=== PATIENT | male | born 1950 | race Caucasian/White ===

== ENCOUNTER → 2017-04-13 | Outpatient (CLI) | payer MEDICARE, BC ==
--- NOTE | 2017-04-13 10:22 | CT ---
EXAM DESCRIPTION: Chest w/Contrast CLINICAL HISTORY: PULMONARY NODULE COMPARISON: 05/15/2016 TECHNIQUE: Multiple axial images of the chest following intravenous contrast. Multiplanar reconstructions were provided. This exam was performed according to our departmental dose-optimization program, which includes automated exposure control, adjustment of the mA and/or kV according to patient size and/or use of iterative reconstruction technique. FINDINGS: Lungs: Moderate to severe emphysema is again demonstrated. New since the prior exam is a 15 mm spiculated pulmonary nodule in the anterior left lingula which abuts the visceral pericardium. A few scattered bilateral pulmonary nodules measuring 2 mm or less are not changed compared to the prior exam. Mild atelectasis or fibrosis in the lung bases. No pleural effusion. Mediastinum: The heart is at the upper limits of normal in size. Mild atherosclerotic plaque in the aortic arch. The trachea and esophagus are unremarkable. Lymph nodes: A few prominent mediastinal lymph nodes are demonstrated. The largest lymph node is in the AP window and measures 0.8 cm in short axis. No overt pathologic mediastinal or hilar lea enlargement based on CT size criteria. Chest wall and lower neck: No significant finding. Bones: The bones are demineralized. There is no destructive osseous lesion. Upper abdomen: Unremarkable. IMPRESSION: 1. New spiculated 15 mm pulmonary nodule in the lingula, most consistent with bronchogenic carcinoma. 2. Moderate to severe emphysema. 3. Additional scattered bilateral pulmonary nodules measuring 2 mm or less. 4. Mediastinal lymph nodes which are not pathologically enlarged based on size criteria. These are indeterminate though most likely reactive. Electronically signed by: Toño Brown MD 04/13/2017 10:20 AM CDT
== END | disposition home or self-care (01) ==
LOC: LAB.O 07:58
PROVIDERS: ATTEND Family Medicine
DX: R91.1 Solitary pulmonary nodule (principal)

== ENCOUNTER → 2017-06-12 | Outpatient (CLI) | payer MEDICARE, BC ==
--- NOTE | 2017-06-15 06:00 | CT ---
Procedure: CT CHEST WITHOUT IV CONTRAST Exam date: 06/12/2017 12:00 AM CDT Ordering Provider: Jaskaran Wall Clinical Indication: PULMONARY NODULE Comparison: April 13, 2017 Technique: Using a multislice scanner, sequential axial imaging was obtained in the thorax from the level of the thoracic inlet through the lung bases. The exam was obtained without the administration of IV contrast. 2D sagittal and coronal reconstructed images were obtained. This exam was performed according to our departmental dose optimization program which includes use of automated exposure control, adjustment of the mA and/or kV according to patient size and/or use of iterative reconstruction technique. FINDINGS: Stable 1.2 x 0.9 cm amorphous, slightly spiculated nodule seen within the anterior lingula abutting the paramediastinal pleural surface. This is best seen on image 30. Again, a nodule in this location is difficult to biopsy by percutaneous CT guidance and PET CT may be of value. There is again diffuse emphysematous changes of lungs with bullous emphysematous changes in the left apex and right lung base. No other new pulmonary nodules or consolidations identified. No bronchiectasis. No pleural effusions or pneumothorax seen. Cardiac size is normal. There is no pericardial effusion. Aorta and pulmonary arteries are grossly unremarkable. Bullous timing was not sent for pulmonary angiography and segmental or subsegmental pulmonary emboli cannot be excluded. No dissection or aneurysm seen. There is no supraclavicular or axillary lymphadenopathy. There is no mediastinal, hilar, or subcarinal lymphadenopathy. There are no acute skeletal abnormalities. Stable remote multiple posterolateral left rib fractures. IMPRESSION 1. Stable solitary pulmonary nodule seen within the left upper lobe abutting the mediastinum as above. Again PET/CT evaluation may be useful to evaluate for malignancy as this again cannot be excluded. Surgical consultation may also be needed. 2. Diffuse emphysematous changes again present. 3. Other stable chronic incidental findings as above. Electronically signed by: Tu Vazquez MD 06/15/2017 5:58 AM CDT
== END | disposition home or self-care (01) ==
LOC: CT 09:58
PROVIDERS: ATTEND Internal Medicine
DX: R91.1 Solitary pulmonary nodule (principal)

== ENCOUNTER → 2017-08-28 | Outpatient (CLI) | payer MEDICARE ==
--- NOTE | 2017-08-28 14:05 | US ---
EXAM DESCRIPTION: Soft Tissue,Abdomen: ULTRASOUND. CLINICAL HISTORY: LOCALIZED SWELLING, MASS AND LUMP. Partial left lobectomy. "Mass popped up on my skin yesterday, no drainage, not tender." Adjacent to incision site. COMPARISON: None Available. TECHNIQUE: Transcutaneous scanning: Two-dimensional and Doppler modes. FINDINGS: Anechoic oval-shaped mass with well-defined borders and parallel orientation. Posterior acoustic enhancement. Appears to be located in the chest wall inferior to the subcutaneous adipose layer. Dimensions are 6.4 x 2.4 x 3.3 cm. No fluid fluid level. Nonvascular. IMPRESSION: Probable seroma abutting incision site measuring 6.4 cm greatest diameter. Electronically signed by: Johnny West MD 08/28/2017 2:04 PM [employer]
== END | disposition home or self-care (01) ==
LOC: US 13:36
PROVIDERS: ATTEND Nurse Practitioner Family
DX: R22.9 Localized swelling, mass and lump, unspecified (principal)

== ENCOUNTER → 2017-09-22 | Outpatient (CLI) | payer MEDICARE | END | disposition home or self-care (01) | LOC: GMAM 15:31 | PROVIDERS: ATTEND Family Medicine | DX: Z12.5 Encounter for screening for malignant neoplasm of prostate (principal) ==

== ENCOUNTER → 2018-08-11 | Outpatient (CLI) | payer MEDICARE ==
--- NOTE | 2018-08-11 13:22 | US ---
EXAM DESCRIPTION: Extremity,Lower Chris Arteries: Ultrasound. CLINICAL HISTORY: PVD I73.9 COMPARISON: None. TECHNIQUE: Doppler evaluation of the bilateral lower extremity arterial flow waveforms and velocities. FINDINGS: Arterial waveforms in the right lower extremity are triphasic from the right common femoral artery through the right popliteal artery also the right peroneal artery. The right posterior tibial artery and dorsalis pedis arteries are biphasic.. Arterial waveforms in the left lower extremity are triphasic from the left common femoral artery through the left popliteal artery. Left peroneal artery, left posterior tibial artery, and left dorsalis pedis artery are biphasic.,. Comments: Generally, velocities in the left lower extremity are decreased compared to the contralateral vessel on the right. IMPRESSION: Bilateral lower extremity arterial Doppler evaluation showing relatively normal arterial waveforms bilaterally and velocities. Velocities are slightly reduced in the left arterial segments compared to the right. Electronically signed by: Johnny West MD 08/11/2018 1:21 PM CDT
--- NOTE | 2018-08-11 13:37 | US ---
EXAM DESCRIPTION: Carotid Duplex: ULTRASOUND. CLINICAL HISTORY: CAROTID STENOSIS COMPARISON: Bilateral lower extremity arterial ultrasound Doppler on this visit. TECHNIQUE: Transcutaneous scanning utilizing guzman-scale and Doppler modes to evaluate the bilateral carotid systems and vertebral arteries. Percentage of diameter of stenosis or no stenosis recorded will be based upon NASCET criteria. FINDINGS: Peak systolic/end diastolic (CM-Sec) CCA Right 96/23 Left 76/18. ICA Right proximal 34/12, distal 62/22. Left proximal 37/12, Distal 50/20. Vertebral Right distal 29/0 Left proximal 20/6. ECA (PS Only) Right 93 left 81. ICA/CCA peak systolic ratio: Right 0.6 Left 0.7 ICA/CCA end diastolic ratio: Right 0.9 Left 1.1 Vertebral arteries: antegrade flow. Comments: Spectral broadening left ICA 44% diameter stenosis left common carotid bulb. 40% diameter stenosis proximal right ICA. IMPRESSION: 1. Doppler evaluation of the bilateral carotid systems and vertebral arteries shows no hemodynamically significant stenoses. 2. No significant amount of plaque seen in the carotid arteries bilaterally. Bilateral vertebral arteries showed antegrade-cephalad flow. Electronically signed by: Johnny West MD 08/11/2018 1:36 PM CDT
== END ==
LOC: US 10:30
PROVIDERS: ATTEND Family Medicine
DX: I65.29 Occlusion and stenosis of unspecified carotid artery (principal); R94.39 Abnormal result of other cardiovascular function study; I70.213 Atherosclerosis of native arteries of extremities with intermittent claudication, bilateral legs

== ENCOUNTER → 2018-11-18 | Outpatient (CLI) | payer MEDICARE ==
--- NOTE | 2018-11-18 12:40 | RAD ---
EXAM DESCRIPTION: Chest,2 Views CLINICAL HISTORY: COPD COMPARISON: Previous chest x-ray June 14, 2018 TECHNIQUE: PA/lateral FINDINGS: Mild fibrotic changes in the lung bases especially on the left. Heart size is normal with normal pulmonary vascularity. No pleural effusion or pneumothorax. Lungs are clear with no consolidating infiltrate. Lateral view shows intact sternum and T-spine. IMPRESSION: No acute process is identified in the chest. Electronically signed by: Colton Maya MD 11/18/2018 12:[address] [facility]
== END ==
LOC: RAD 12:01
PROVIDERS: ATTEND Internal Medicine
DX: J44.9 Chronic obstructive pulmonary disease, unspecified (principal)

== ENCOUNTER → 2019-03-10 | Outpatient (CLI) | payer MEDICARE ==
--- NOTE | 2019-03-11 08:30 | CT ---
Procedure: CT LUNG SCREENING Exam Date: 03/10/2019. Ordering Provider: Benny Lopez MD Clinical Indication: TOBACCO ABUSE This patient meets eligibility criteria for low-dose CT lung cancer screening. Comparison: CT scan of the chest without contrast 06/12/2017. Technique: Using a multislice scanner, sequential helical axial imaging was obtained in the thorax, 2.5 mm thickness, 2.5 mm separation, from the level of the thoracic inlet through the lung bases without IV contrast. A low dose protocol was utilized for BMI less than 30: BMI: 29. CTDI: 1.76 mGy. 120. kVp. 45 mA. DLP: 65.96 mGy centimeters. 2D sagittal and coronal reconstructed images, 6.0 mm thickness, were obtained. This exam was performed according to our departmental dose optimization program which includes use of automated exposure control, adjustment of the mA and/or kV according to patient size and/or use of iterative reconstruction technique. Nodule measurements under 10 mm are given as mean value of 3 axes diameters. FINDINGS: Lungs and large airways: Small emphysematous blebs in a centrilobular pattern prevalent In the upper lung murray. Large blebs bilaterally mostly involving the medial parenchyma and pleura. Chronic septal thickening with blebs and bulla in the medial posterior recess of the right lower lobe stable. Bilateral perihilar peribronchial wall cuffing. Stable chronic groundglass density lateral posterior recess of the right lower lobe. Subpleural scar in the posterior apex of the superior segment of the left lower lobe with a solid component 3 mm on axial series 2, image 49. Not present on the prior study. Minimal thickening intermittently in the left major fissure. Pleura and space: Intermittent thickening bilaterally with no effusion or pneumothorax. Mediastinum and rosmery: evaluation limited by low dose technique and lack of IV contrast. Small mediastinal and hilar lymph nodes, stable since the prior study. Heart and great vessels: Atherosclerotic calcification included proximal brachiocephalic vessels aortic arch. Chest wall, lower neck, axillae: Evaluation also limited by same factors as described above. Negative. Upper abdomen: Normal size and density of the spleen and adrenal glands. Included peritoneal space is unremarkable. Osseous structures: Evaluation limited by low dose MIP technique. Healing fractures lateral left seventh and eighth ribs. Schmorl's node superior T5 endplate. IMPRESSION: 1. Emphysematous changes in the lungs. Nodular component of a scar in the left lower lobe 3 mm. Stable groundglass densities in pleural parenchymal scars in the right lung base.. [facility] Best Practice recommendations: Please see below for Lung RADS category and FOLLOW-UP.* *Lung RADS category CATEGORY 2- Nodules with a very low likelihood (less than 1%) of becoming a clinically active cancer due to size or lack of growth. Nodules: Solid or part solid nodule(s) less than 6mm, new solid nodule less than 4mm. Ground glass nodule(s) less than 20mm or unchanged or slow growing ground glass nodule 20mm or greater. Cat 3 or 4 nodule unchanged for 3 or more months. FOLLOW-UP: Continue annual screening with a Low Dose Chest CT in 12 months for re-evaluation. Electronically signed by: Johnny West MD 03/11/2019 8:28 AM CDT
== END ==
LOC: CT 09:00
PROVIDERS: ATTEND Family Medicine
DX: Z87.891 Personal history of nicotine dependence (principal); J43.9 Emphysema, unspecified; J98.4 Other disorders of lung

== ENCOUNTER → 2019-05-17 | Outpatient (CLI) | payer MEDICARE | LOC: GMAM 20:15 | PROVIDERS: ATTEND Family Medicine | DX: R53.82 Chronic fatigue, unspecified (principal) ==

== ENCOUNTER → 2019-05-19 | Outpatient (CLI) | payer MEDICARE ==
--- NOTE | 2019-05-20 07:58 | RAD ---
EXAM DESCRIPTION: Chest,2 Views CLINICAL HISTORY: Lung nodule COMPARISON: Chest radiograph 11/18/2018. CT chest 03/10/2019. TECHNIQUE: PA/lateral FINDINGS/IMPRESSION: No significant interval change. Background pulmonary emphysematous changes with bibasilar interstitial thickening and scarring/fibrosis. No focal consolidation, significant pneumothorax or pleural effusion. The heart is normal in size. No acute osseous abnormality. Previously noted subcentimeter nodule on CT lung screening is not clearly visualized and can be follow-up with CT. Electronically signed by: Guille Gonzalez DO 05/20/2019 7:56 AM CDT
== END ==
LOC: RAD 10:28
PROVIDERS: ATTEND Internal Medicine
DX: R91.1 Solitary pulmonary nodule (principal); J44.9 Chronic obstructive pulmonary disease, unspecified

== ENCOUNTER → 2020-07-16 | Outpatient (CLI) | payer MEDICARE | LOC: GMAM 11:33 | PROVIDERS: ATTEND Family Medicine | DX: E53.8 Deficiency of other specified B group vitamins (principal); E55.9 Vitamin D deficiency, unspecified; R97.20 Elevated prostate specific antigen [PSA]; Z79.899 Other long term (current) drug therapy ==